=== PATIENT | male | born 1945 | race Caucasian/White ===

== ENCOUNTER 2024-07-25 11:48 | Emergency (ER) | payer SELFPAY ==
[2024-07-25] MEDS ORDERED: NA CHLORIDE 0.9% 1,000 ML ONE (12:10)
--- NOTE | 2024-07-25 12:57 | RAD REPORT ---
EXAMINATION: Extrem Venous W Compress Ethan CLINICAL INDICATION: [facility] MAIN Pain;Swelling Bed Name: 6 N TECHNIQUE: Complete bilateral duplex sonography of the BILATERAL lower extremity veins was performed. The examination included compression for vein patency, color Doppler imaging and flow augmentation in response to distal compression of the distal external iliac, common femoral, femoral, popliteal, t ibial, and great and small saphenous veins. COMPARISON: No prior exam. FINDINGS: Duplex sonography testing of the veins of the BILATERAL lower extremity was performed. Color flow yue ging shows all veins to be compressible with [id number] color filling. Pulsatile and phasic flow is present within all lower extremity deep and superficial veins examined. Mild subcutaneous edema al jaron the lower legs. Elongated fairly well-circumscribed mildly complex cyst in the left popliteal fossa measuring up to 3.9 cm in longest diameter. IMPRESSION: There is no deep vein or superficial vein thrombosis bilaterally. Suspected mildly complex Padgett's cyst in the left popliteal fossa measuring up to 3.9 cm. Mild subcutaneous edema of the lower legs bilaterally.
[2024-07-25 13:15] LABS: Absolute Lymphocytes (CBC) 0.4 K/uL (0.7-4.9); Absolute Monocytes 0.2 K/uL (0.1-1.3); Absolute Neutrophil 4.6 K/uL (1.8-8.0); Basophils % 0.1 % (0-1.3); Eosinophils % 0.1 % (0-4.4); Hematocrit 28.9 % (39.6-49.0); Hemoglobin 9.6 g/dL (13.6-17.9); Lymphocytes % 6.9 % (15.3-44.8); MCH 28.4 pg (27.0-35.0); MCHC 33.3 g/dL (32.0-36.0); MCV 85.2 fL (80-100); MPV 8.8 fL (7.6-11.3); Monocytes % 3.1 % (3.3-12.3); Neutrophils % 89.8 % (41.7-73.7); Platelets 118 thou/uL (152-406); RBC Red Blood Cell Count 3.39 M/uL (4.33-5.43); Red Cell Distribution Width 13.9 % (12.1-15.2)
[2024-07-25 13:16] LABS: PT Prothrombin Time 10.9 SECONDS (9.4-12.5); Protime INR 0.97
[2024-07-25 13:23] LABS: Specific Gravity 1.012 (1.005-1.030); Sqamous Epithelial None Seen /HPF (None Seen); Urine Bacteria None Seen /HPF (<20); Urine Bilirubin NEGATIVE (Negative); Urine Blood 1+ (Negative); Urine Clarity Clear (Clear); Urine Color Colorless (Yellow); Urine Culture Reflex Order NOT NEEDED; Urine Glucose 4+ (Over) (Negative); Urine Ketones NEGATIVE (Negative); Urine Microscopic Reflex YN ORDER UMIC; Urine Nitrite NEGATIVE (Negative); Urine Protein 1+ (Negative); Urine RBC None Seen /HPF (None Seen); Urine Urobilinogen Normal (Normal); Urine WBC <5 /HPF (<5)
[2024-07-25 13:33] LABS: Albumin 2.5 g/dL (3.4-5.0); Albumin/Globulin Ratio 0.6 (1.1-1.8); Anion Gap 9.4 mEq/L (5.0-15.0); Bilirubin Direct 0.3 mg/dL (0-0.2); Bilirubin Indirect, Calculated 0.3 mg/dL (0.2-0.8); Bilirubin Total 0.6 mg/dL (0.2-1.0); Globulin 3.9 g/dL (2.3-3.5); Protein, Total 6.4 g/dL (6.4-8.2); Troponin High Sensitivity 47.6 pg/mL (<58.9)
[2024-07-25 13:36] LABS: Potassium 2.4 mEq/L (3.5-5.1)
[2024-07-25 13:41] LABS: Blood Morphology Comment NOT SEEN (NOT SEEN); Platelet Estimate DECR; White Blood Cell Scan OK (OK)
--- NOTE | 2024-07-25 14:11 | RAD REPORT ---
Procedure: Chest Single View History: Cough Comparison: CT chest July 25, 2000 Mild right lower lobe opacity. Cavitary lesion right lower lobe seen on the CT chest are not well seen on this exam The left lung clear of acute infiltrate. No significant pleural effusion noted. The heart is normal size. IMPRESSION: Mild right lower lobe opacity. Additional right lower lobe cavitary lesion. These probably are infect ious. Neoplasm is another consideration and follow-up imaging recommended.
[2024-07-25] MEDS ORDERED: POTASSIUM 25 MEQ EFFERV TAB ONE ×3 (16:05→17:38)
[2024-07-25] MEDS ORDERED: INSULIN GLARGINE 100 UNIT/ML SQ ONE (16:05)
[2024-07-25] MEDS ORDERED: NS KCL 20MEQ 1,000 ML IV ONE (16:06)
[2024-07-25] MEDS ORDERED: FAMOTIDINE 20 MG/2 ML VIAL IV ONE (16:06)
[2024-07-25] MEDS ORDERED: Levofloxacin500mg IV 500 MG/100 ML BAG IV ONE (16:06)
[2024-07-25] MEDS ORDERED: KCL 20 MEQ/100 mL IVPB 100 ML IV ONE (16:06)
--- NOTE | 2024-07-25 16:08 | EDPHYS ---
Physician Documentation [facility] Name: Joe Sterling Age: 79 yrs Sex: Male : 1945 Arrival Date: 07/25/2024 Time: 11:48 Bed 6 Private MD: VARUN Physician Mayur Kaur HPI: 07/25 15:58 This 79 yrs old Male presents to ER via EMS with complaints of Edema. mariely 15:58 The patient presents with pain, swelling. The complaints affect the right leg and left mariely leg. Context: resulted from an unknown cause. Onset: The symptoms/episode began/occurred 10 day(s) ago. Modifying factors: The symptoms are alleviated by elevating leg, the symptoms are aggravated by movement, weight bearing. Associated signs and symptoms: Pertinent positives: swelling. The patient has shortness of breath with light activity, and the patient has a history of COPD. Duration: The symptoms are continuous, and are steadily getting worse. The patient's shortness of breath is aggravated by exertion, light activity. Historical: - Allergies: 12:02 No Known Allergies; ko1 - Home Meds: 12:02 albuterol sulfate 90 mcg/actuation Inhl HFA Aerosol Inhaler 2 puffs q6hrs as needed for ko1 chronic obstructive pulmonary disease [Active]; allopurinol 100 mg Oral tablet once for gout [Active]; amlodipine 10 mg tablet 1 tab daily for hypertension [Active]; atorvastatin 80 mg oral tablet 1 tab daily for hypercholesterolemia [Active]; budesonide-formoterol 160-4.5 mcg/actuation inhalation HFA Aerosol Inhaler 2 puffs 2 times per day for bronchospasm prevention with COPD [Active]; cholecalciferol (vitamin D3) 50 mcg (2,000 unit) oral capsule .5 cap daily for prevention of vitamin D deficiency [Active]; cyanocobalamin (vitamin B-12) 1,000 mcg oral capsule 1 cap daily for prevention of vitamin B12 deficiency [Active]; empagliflozin 25 mg oral tablet .5 tab daily for kidney disease with reduction in glomerular filtration rate (GFR) [Active]; finasteride 5 mg oral tablet 1 tab daily for benign prostatic hyperplasia with lower urinary tract symptom [Active]; hydrochlorothiazide 25 mg Oral tablet 1 tab daily [Active]; lisinopril 40 mg Oral tablet 1 tab daily for hypertension [Active]; mirtazapine 15 mg Oral tablet 0.5 tabs daily for major depressive disorder [Active]; montelukast 10 mg oral tablet 1 tab every evening for maintenance therapy for asthma [Active]; tamsulosin 0.4 mg oral capsule 1 cap every day at bedtime [Active]; terbinafine HCl 1 % topical cream 1 application 2 times per day [Active]; tiotropium bromide 2.5 mcg/actuation inhalation Mist 2 inhalations daily for bronchospasm prevention with COPD [Active]; - PMHx: 12:02 Chronic obstructive lung disease; Kidney disease; Diabetes mellitus; ko1 Hypercholesterolemia; Hypertensive disorder; - PSHx: 12:02 Unable to Obtain; ko1 - Immunization history:: Adult Immunizations up to date. - Infectious Disease History:: Denies. - Social history:: Smoking status: Patient reports the use of cigarette tobacco products, unknown amount. - Family history:: not pertinent. ROS: 15:58 Constitutional: Negative for fever, chills, and weight loss, Eyes: Negative for injury, mariely pain, redness, and discharge, ENT: Negative for injury, pain, and discharge, Neck: Negative for injury, pain, and swelling, Cardiovascular: Negative for chest pain, palpitations, and edema, Abdomen/GI: Negative for abdominal pain, nausea, vomiting, diarrhea, and constipation, Back: Negative for injury and pain, : Negative for injury, bleeding, discharge, and swelling, Skin: Negative for injury, rash, and discoloration, Neuro: Negative for headache, weakness, numbness, tingling, and seizure, Psych: Negative for depression, anxiety, suicide ideation, homicidal ideation, and hallucinations, Allergy/Immunology: Negative for hives, rash, and allergies, Endocrine: Negative for neck swelling, polydipsia, polyuria, polyphagia, and marked weight changes, Hematologic/Lymphatic: Negative for swollen nodes, abnormal bleeding, and unusual bruising, 15:58 Respiratory: Positive for cough, shortness of breath, at rest. wheezing, expiratory, 15:58 : Positive for 15:58 MS/extremity: Positive for pain, swelling, tenderness, of the right leg and left leg, Exam: 15:58 Constitutional: This is a well developed, well nourished patient who is awake, alert, mariely and in no acute distress. Head/Face: Normocephalic, atraumatic. Eyes: Pupils equal round and reactive to light, extra-ocular motions intact. Lids and lashes normal. Conjunctiva and sclera are non-icteric and not injected. Cornea within normal limits. Periorbital areas with no swelling, redness, or edema. ENT: Nares patent. No nasal discharge, no septal abnormalities noted. Tympanic membranes are normal and external auditory canals are clear. Oropharynx with no redness, swelling, or masses, exudates, or evidence of obstruction, uvula midline. Mucous membranes moist. Neck: Trachea midline, no thyromegaly or masses palpated, and no cervical lymphadenopathy. Supple, full range of motion without nuchal rigidity, or vertebral point tenderness. No Meningismus. Chest/axilla: Normal chest wall appearance and motion. Nontender with no deformity. No lesions are appreciated. Cardiovascular: Regular rate and rhythm with a normal S1 and S2. No gallops, murmurs, or rubs. Normal PMI, no JVD. No pulse deficits. Abdomen/GI: Soft, non-tender, with normal bowel sounds. No distension or tympany. No guarding or rebound. No evidence of tenderness throughout. Back: No spinal tenderness. No costovertebral tenderness. Full range of motion. Male : Normal genitalia with no discharge or lesions. Skin: Warm, dry with normal turgor. Normal color with no rashes, no lesions, and no evidence of cellulitis. Neuro: Awake and alert, GCS 15, oriented to person, place, time, and situation. Cranial nerves II-XII grossly intact. Motor strength 5/5 in all extremities. Sensory grossly intact. Cerebellar exam normal. Normal gait. Psych: Awake, alert, with orientation to person, place and time. Behavior, mood, and affect are within normal limits. 15:58 ECG was reviewed by the Attending Physician. 15:58 Respiratory: the patient does not display signs of respiratory distress, Breath sounds: decreased breath sounds, that are moderate, are scattered, are located in both bases, rhonchi, that are mild, are scattered, stridor, is not appreciated, + upper airway congestion. wheezing: expiratory Respiratory rate: 15 15:58 Musculoskeletal/extremity: Extremities: grossly normal except: ROM: intact in all extremities, full active range of motion, full passive range of motion, Circulation is intact in all extremities. Sensation intact. Compartment Syndrome exam of affected extremity: is normal. Weight bearing: able to fully bear weight, without difficulty, DVT Exam: no pain, no tenderness, negative Homans' sign noted on exam, no appreciated bluish discoloration, no erythema, no increased warmth, swelling, 15:58 Neuro: Orientation: is normal, appropriate for stated age, no acute changes, Mentation: is normal, appropriate for stated age, no acute changes, Memory: is normal, appropriate for stated age, no acute changes, Cranial nerves: grossly normal, is grossly normal based on the patient's age, no acute changes, Cerebellar function: is grossly normal, is grossly normal based on the patient's age, no acute changes, Gait: is steady, appropriate for age, seizure activity, is not displayed by the patient, Vital Signs: 13:04 BP 165 / 66; Pulse 64; Resp 18; Temp 98; Pulse Ox 97% on R/A; ko1 14:12 BP 148 / 61; Pulse 70; Resp 16; Pulse Ox 98% ; ko1 14:58 BP 158 / 75; Pulse 83; Resp 16 S; Pulse Ox 95% on R/A; kc6 16:00 BP 163 / 68; Pulse 84; Resp 15; Pulse Ox 100% ; ko1 16:40 BP 152 / 67; Pulse 100; Resp 19 S; Pulse Ox 99% on R/A; kc6 17:45 BP 140 / 70; Pulse 98; Resp 20 S; Pulse Ox 97% on R/A; kc6 MDM: 11:53 Patient medically screened. mariely 16:03 Differential diagnosis: tendonitis, Bronchitis CHF exacerbation, Chronic Obstructive mariely Pulmonary Disease pneumonia, pulmonary edema, reactive airway disease. Antibiotic administration: Levaquin given. Differential Diagnosis: Obstructed Airway Bronchitis Influenza Upper Respiratory Infection Sinusitis Pharyngitis Otitis Media Asthma Exacerbation Viral Syndrome Pneumonia. Immunization status: Pneumococcal vaccine: within last 5 years. Influenza vaccine: within last 5 years. Data reviewed: vital signs, nurses notes, lab test result(s), EKG, radiologic studies, CT scan, plain films. I considered the following discharge prescriptions or medication management in the emergency department Medications were administered in the Emergency Department. See MAR. Independent interpretation of the following test(s) in the Emergency Department EKG: See my EKG interpretation above. Test considered but Not performed: Ultrasound NO 2 D ECHO. Historians other than the Patient: PT WELL INFORMED. Care significantly affected by the following chronic conditions: Diabetes, Hypertension, Congestive Heart Failure, Chronic Obstructive Pulmonary Disease, Obesity, Chronic Kidney Disease. Counseling: I had a detailed discussion with the patient and/or guardian regarding the historical points, exam findings, and any diagnostic results supporting the discharge/admit diagnosis, lab results, radiology results, the need to transfer to another facility, for higher level of care, [facility] does not immediately have the required specialist. 07/25 11:54 Order name: Basic Metabolic Panel; Complete Time: 15:45 [facility] 07/25 11:54 Order name: CBC with Diff; Complete Time: 15:45 [facility] 07/25 11:54 Order name: LFT's; Complete Time: 15:45 [facility] 07/25 11:54 Order name: Magnesium; Complete Time: 15:45 [facility] 07/25 11:54 Order name: NT PRO-BNP; Complete Time: 15:45 [facility] 07/25 11:54 Order name: PT-INR; Complete Time: 15:45 [facility] 07/25 11:54 Order name: Troponin HS; Complete Time: 15:45 [facility] 07/25 11:54 Order name: Lipase; Complete Time: 15:45 [facility] 07/25 11:54 Order name: Urinalysis w/ reflexes; Complete Time: 15:45 [facility] 07/25 13:18 Order name: CBC Smear Scan; Complete Time: 15:45 [facility] 07/25 15:46 Order name: Phosphorus [facility] 07/25 15:57 Order name: Blood Culture Adult (2) [facility] 07/25 18:28 Order name: Glucose, Ancillary Testing [facility] 07/25 11:54 Order name: XRAY Chest (1 view); Complete Time: 15:45 [facility] 07/25 11:54 Order name: US Extremity Venous W Compression Ethan; Complete Time: 15:45 [facility] 07/25 11:54 Order name: CT Chest Abdomen Pelvis W/O Contrast [facility] 07/25 11:54 Order name: Cardiac monitoring; Complete Time: 13:09 [facility] 07/25 11:54 Order name: EKG - Nurse/Tech; Complete Time: 13:11 [facility] 07/25 11:54 Order name: IV Saline Lock; Complete Time: 13:11 [facility] 07/25 11:54 Order name: Labs collected and sent; Complete Time: 13:11 [facility] 07/25 11:54 Order name: O2 Per Protocol; Complete Time: [facility] 07/25 11:54 Order name: O2 Sat Monitoring; Complete Time: : [facility] EC:58 Rate is 89 beats/min. Rhythm is regular. QRS [place] is Normal. MT interval is normal. QRS mariely interval is normal. QT interval is normal. No Q waves. T waves are Normal. No ST changes noted. Clinical impression: NSR w/ Non-specific ST/T Changes and No evidence of ischemia. Interpreted by me. Reviewed by me. Administered Medications: 15:46 Discontinued: ns 0.9% 1000 ml IV at 75 ml/hr continuous [facility] 13:11 Drug: NS 0.9% IV 1000 ml IV at 75 ml/hr continuous Route: IV; Rate: 75 ml/hr; Site: [facility] left forearm; 15:47 Follow up: Response: No adverse reaction; IV Status: Order to discontinue infusion [facility] 16:15 Drug: Potassium PO Effervescent Tablet 50 mEq PO once; dissolve in 4 ounces of water or kc6 juice Route: PO; 17:42 Follow up: Response: No adverse reaction [facility] 16:15 Drug: Insulin Glargine Sub-Q 30 units Sub-Q once {Co-Signature: ko1 (Juana Busch [facility] RN).} Route: Sub-Q; Site: left upper arm; 18:18 Follow up: Response: No adverse reaction; Blood sugar is unchanged [facility] 16:15 Drug: Famotidine IVP 20 mg IVP once; dilute with 10 mL 0.9% NaCl; give over 2 minutes kc6 Route: IVP; Site: left forearm; 17:42 Follow up: Response: No adverse reaction [facility] 16:25 Drug: Potassium Chloride IV 20 mEq IV at per protocol once; administer over 1-2 hours kc6 Route: IV; Rate: per protocol; Site: right forearm; 18:27 Follow up: Response: No adverse reaction; IV Status: Completed infusion; IV Intake: kc6 100ml 16:25 Drug: NS 0.9% with KCl IV 20 mEq/L 1000 ml IV at 100 ml/hr continuous Route: IV; Rate: kc6 100 ml/hr; Site: right forearm; 18:58 Follow up: Response: No adverse reaction; IV Status: Infusion continued upon transfer kc6 16:39 Drug: levofloxacin IVPB 500 mg 100 ml IVPB once over 60 mins Volume: 100 ml; Route: kc6 IVPB; Infused Over: 60 mins; Site: left forearm; 17:42 Follow up: Response: No adverse reaction; IV Status: Completed infusion; IV Intake: kc6 100ml 16:48 Drug: Levalbuterol Inhalation 2.5 mg Inhalation once Route: Inhalation; [facility] 16:48 Drug: Ipratropium Inhalation Aerosol 0.5 mg Inhalation once Route: Inhalation; [facility] 16:48 Drug: Insulin Regular Human Sub-Q 10 units Sub-Q once {Co-Signature: ko1 (Juana Busch6 RN).} Route: Sub-Q; Site: right upper arm; 18:19 Follow up: Response: No adverse reaction; Blood sugar is unchanged [facility] 17:41 Drug: Potassium PO Effervescent Tablet 50 mEq PO once; dissolve in 4 ounces of water or kc6 juice IN [address] Route: PO; 18:19 Follow up: Response: No adverse reaction [facility] 18:26 Drug: Insulin Regular Human IVP 10 units IVP once {Co-Signature: ko1 (Juana Busch6 RN).} Route: IVP; Site: left forearm; 18:58 Follow up: Response: No adverse reaction; Blood sugar is lowered [facility] Disposition Summary: 07/25/24 16:07 Transfer Ordered Notes: Transfer Location: [facility] mariely Reason: Higher level of care mariely Condition: Fair mariely Problem: new mariely Symptoms: have improved mariely [facility]ing [facility]01[facility] kc6 Diagnosis - Edema, unspecified mariely - COPD/ Chronic obstructive pulmonary disease with acute lower respiratory infection mariely - Pneumonia due to other specified bacteria - RIGHT LOWER , ALSO RIGHT LOWER CAVITARY mariely LESION - Hypokalemia mariely - Acute kidney failure, unspecified mariely - Anemia, unspecified mariely - 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 EDMS EDMS 11:55 11:55 Chest Abdomen Pelvis Wo Con+CT.RAD.BRZ ordered. EDMS EDMS 16:07 16:07 TO THE [facility] 16:13 16:07 TO THE [facility] 19:01 16:13 TO THE [facility] kc6
--- NOTE | 2024-07-25 16:08 | ER ---
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 Patient was started on abx and steroids on the and since then has had problems with swelling, thirst and frequent urination. Coronavirus screen: At this time, the client does not indicate any symptoms associated with coronavirus-19. Ebola Screen: No symptoms or risks identified at this time. Initial Sepsis Screen: Does the patient meet any 2 criteria? Yes Does the patient have a suspected source of infection? No. Patient's initial sepsis screen is negative. Risk Assessment: Do you want to hurt yourself or someone else? Patient reports no desire to harm self or others. Onset of symptoms is unknown. Care prior to arrival: Glucose check: 455. 11:53 Method Of Arrival: EMS: [facility] ko1 11:53 Acuity: SHARRI 3 ko1 Triage Assessment: 12:02 General: Appears in no apparent distress. Behavior is calm, cooperative, appropriate ko1 for age. Pain: Denies pain. Historical: - Allergies: 12:02 No Known Allergies; ko1 - Home Meds: 12:02 albuterol sulfate 90 mcg/actuation Inhl HFA Aerosol Inhaler 2 puffs q6hrs as needed for ko1 chronic obstructive pulmonary disease [Active]; allopurinol 100 mg Oral tablet once for gout [Active]; amlodipine 10 mg tablet 1 tab daily for hypertension [Active]; atorvastatin 80 mg oral tablet 1 tab daily for hypercholesterolemia [Active]; budesonide-formoterol 160-4.5 mcg/actuation inhalation HFA Aerosol Inhaler 2 puffs 2 times per day for bronchospasm prevention with COPD [Active]; cholecalciferol (vitamin D3) 50 mcg (2,000 unit) oral capsule .5 cap daily for prevention of vitamin D deficiency [Active]; cyanocobalamin (vitamin B-12) 1,000 mcg oral capsule 1 cap daily for prevention of vitamin B12 deficiency [Active]; empagliflozin 25 mg oral tablet .5 tab daily for kidney disease with reduction in glomerular filtration rate (GFR) [Active]; finasteride 5 mg oral tablet 1 tab daily for benign prostatic hyperplasia with lower urinary tract symptom [Active]; hydrochlorothiazide 25 mg Oral tablet 1 tab daily [Active]; lisinopril 40 mg Oral tablet 1 tab daily for hypertension [Active]; mirtazapine 15 mg Oral tablet 0.5 tabs daily for major depressive disorder [Active]; montelukast 10 mg oral tablet 1 tab every evening for maintenance therapy for asthma [Active]; tamsulosin 0.4 mg oral capsule 1 cap every day at bedtime [Active]; terbinafine HCl 1 % topical cream 1 application 2 times per day [Active]; tiotropium bromide 2.5 mcg/actuation inhalation Mist 2 inhalations daily for bronchospasm prevention with COPD [Active]; - PMHx: 12:02 Chronic obstructive lung disease; Kidney disease; Diabetes mellitus; ko1 Hypercholesterolemia; Hypertensive disorder; - PSHx: 12:02 Unable to Obtain; ko1 - Immunization history:: Adult Immunizations up to date. - Infectious Disease History:: Denies. - Social history:: Smoking status: Patient reports the use of cigarette tobacco products, unknown amount. - Family history:: not pertinent. Screenin:20 [facility] ED Fall Risk Assessment (Adult) History of falling in the last 3 months, ko1 including since admission No falls in past 3 months (0 pts) Confusion or Disorientation No (0 pts) Intoxicated or Sedated No (0 pts) Impaired Gait No (0 pts) Mobility Assist Device Used No (0 pt) Altered Elimination No (0 pt) Score/Fall Risk Level 0 - 2 = Low Risk Oriented to surroundings, Maintained a safe environment, Educated pt \T\ family on fall prevention, incl call for assistance when getting out of bed, Assessed \T\ reinforced patient's understanding of fall precautions, Provided non-skid footwear, Hourly rounding (assess needs \T\ fall precautionary measures) done. Abuse screen: Denies threats or abuse. Denies injuries from another. Nutritional screening: No deficits noted. Tuberculosis screening: No symptoms or risk factors identified. Assessment: 12:20 Neuro: No deficits noted. Cardiovascular: Patient's skin is warm and dry. edema to ko1 lower ext and hands. Respiratory: No deficits noted. GI: No deficits noted. : No deficits noted. EENT: No deficits noted. Derm: No deficits noted. Musculoskeletal: No deficits noted. 13:20 Reassessment: Patient appears in no apparent distress at this time. No changes from kc6 previously documented assessment. Patient and/or family updated on plan of care and expected duration. Pain level reassessed. Patient is alert, oriented x 3, equal unlabored respirations, skin warm/dry/pink. 14:58 Reassessment: Patient appears in no apparent distress at this time. No changes from kc6 previously documented assessment. Patient and/or family updated on plan of care and expected duration. Pain level reassessed. Patient is alert, oriented x 3, equal unlabored respirations, skin warm/dry/pink. 16:00 Reassessment: Patient appears in no apparent distress at this time. No changes from kc6 previously documented assessment. Patient and/or family updated on plan of care and expected duration. Pain level reassessed. Patient is alert, oriented x 3, equal unlabored respirations, skin warm/dry/pink. 17:45 Reassessment: Patient appears in no apparent distress at this time. No changes from kc6 previously documented assessment. Patient and/or family updated on plan of care and expected duration. Pain level reassessed. Patient is alert, oriented x 3, equal unlabored respirations, skin warm/dry/pink. 18:58 Reassessment: Patient appears in no apparent distress at this time. No changes from kc6 previously documented assessment. Patient and/or family updated on plan of care and expected duration. Pain level reassessed. Patient is alert, oriented x 3, equal unlabored respirations, skin warm/dry/pink. Vital Signs: 13:04 BP 165 / 66; Pulse 64; Resp 18; Temp 98; Pulse Ox 97% on R/A; ko1 14:12 BP 148 / 61; Pulse 70; Resp 16; Pulse Ox 98% ; ko1 14:58 BP 158 / 75; Pulse 83; Resp 16 S; Pulse Ox 95% on R/A; kc6 16:00 BP 163 / 68; Pulse 84; Resp 15; Pulse Ox 100% ; ko1 16:40 BP 152 / 67; Pulse 100; Resp 19 S; Pulse Ox 99% on R/A; kc6 17:45 BP 140 / 70; Pulse 98; Resp 20 S; Pulse Ox 97% on R/A; kc6 ED Course: 11:53 Patient arrived in ED. ko1 11:53 Mayur Kaur MD is Attending Physician. [facility] 11:53 Juana Busch, JOANNE is Primary Nurse. ko1 11:56 Triage completed. ko1 12:02 Arm band placed on right wrist. Patient placed in an exam room, on a stretcher, on ko1 lay out carpenter, on pulse oximetry, Patient notified of wait time. 12:04 CT Chest Abdomen Pelvis W/O Contrast In Process Unspecified. EDMS 12:20 Patient has correct armband on for positive identification. Bed in low position. Call ko1 light in reach. Side rails up X2. Provided Education on: tests. Client placed on continuous cardiac and pulse oximetry monitoring. NIBP monitoring applied. performance improvement analyst on. Door closed. Noise minimized. Lights dimmed. Warm blanket given. Pillow given. 12:35 US Extremity Venous W Compression Ethan In Process Unspecified. EDMS 13:11 Urinalysis w/ reflexes Sent. kc6 13:11 Inserted saline lock: 20 gauge in left forearm, using aseptic technique. Blood kc6 collected. Flushed with 10 mL NS. Patient maintains SpO2 saturation greater than 95% on room air. 13:33 XRAY Chest (1 view) In Process Unspecified. EDMS 14:12 No provider procedures requiring assistance completed. ko1 14:30 Patient requests rest room assistance. ko1 14:30 Assisted to bathroom. ko1 15:32 Assisted to bathroom. ko1 15:33 Patient requests rest room assistance. ko1 16:19 initiated transfer to [facility], faxed chart to [place] er as requested by transfer center.bd 16:20 Inserted saline lock: 22 gauge in right forearm, using aseptic technique. Blood kc6 collected. Flushed with 10 mL NS. 18:07 pt accepted in transfer to [facility] ER by dr Gomes admin approval given by morgan Dale. 18:14 Patient transferred, IV remains in place. ko1 18:50 Awaiting transportation. ko1 Administered Medications: 15:46 Discontinued: ns 0.9% 1000 ml IV at 75 ml/hr continuous mariely 13:11 Drug: NS 0.9% IV 1000 ml IV at 75 ml/hr continuous Route: IV; Rate: 75 ml/hr; Site: [facility] left forearm; 15:47 Follow up: Response: No adverse reaction; IV Status: Order to discontinue infusion [facility] 16:15 Drug: Potassium PO Effervescent Tablet 50 mEq PO once; dissolve in 4 ounces of water or kc6 juice Route: PO; 17:42 Follow up: Response: No adverse reaction [facility] 16:15 Drug: Insulin Glargine Sub-Q 30 units Sub-Q once {Co-Signature: ko1 (Juana Busch6 RN).} Route: Sub-Q; Site: left upper arm; 18:18 Follow up: Response: No adverse reaction; Blood sugar is unchanged [facility] 16:15 Drug: Famotidine IVP 20 mg IVP once; dilute with 10 mL 0.9% NaCl; give over 2 minutes kc6 Route: IVP; Site: left forearm; 17:42 Follow up: Response: No adverse reaction [facility] 16:25 Drug: Potassium Chloride IV 20 mEq IV at per protocol once; administer over 1-2 hours kc6 Route: IV; Rate: per protocol; Site: right forearm; 18:27 Follow up: Response: No adverse reaction; IV Status: Completed infusion; IV Intake: kc6 100ml 16:25 Drug: NS 0.9% with KCl IV 20 mEq/L 1000 ml IV at 100 ml/hr continuous Route: IV; Rate: kc6 100 ml/hr; Site: right forearm; 18:58 Follow up: Response: No adverse reaction; IV Status: Infusion continued upon transfer [facility] 16:39 Drug: levofloxacin IVPB 500 mg 100 ml IVPB once over 60 mins Volume: 100 ml; Route: kc6 IVPB; Infused Over: 60 mins; Site: left forearm; 17:42 Follow up: Response: No adverse reaction; IV Status: Completed infusion; IV Intake: kc6 100ml 16:48 Drug: Levalbuterol Inhalation 2.5 mg Inhalation once Route: Inhalation; [facility] 16:48 Drug: Ipratropium Inhalation Aerosol 0.5 mg Inhalation once Route: Inhalation; [facility] 16:48 Drug: Insulin Regular Human Sub-Q 10 units Sub-Q once {Co-Signature: ko1 (Juana Busch RN).} Route: Sub-Q; Site: right upper arm; 18:19 Follow up: Response: No adverse reaction; Blood sugar is unchanged kc6 17:41 Drug: Potassium PO Effervescent Tablet 50 mEq PO once; dissolve in 4 ounces of water or kc6 juice IN [address] Route: PO; 18:19 Follow up: Response: No adverse reaction kc6 18:26 Drug: Insulin Regular Human IVP 10 units IVP once {Co-Signature: ko1 (Juana Busch6 RN).} Route: IVP; Site: left forearm; 18:58 Follow up: Response: No adverse reaction; Blood sugar is lowered kc6 Medication: 14:12 VIS not applicable for this client. ko1 Intake: 17:42 IV: 100ml; Total: 100ml. kc6 18:27 IV: 100ml; Total: 200ml. kc6 Outcome: 16:07 ER care complete, transfer ordered by MD. schuster 18:20 Condition: stable ko1 18:20 Instructed on the need for transfer, 18:58 Transferred by ground EMS to [facility] Transfer form completed. kc6 19:01 Patient left the ED. kc6 Signatures: Dispatcher [employer] Gloria Mohamud Corey, MD MD cha Campbell, Kaitlyn RN RN kc6 Juana Busch RN RN ko1 Juana Busch RN ko1
--- NOTE | 2024-07-25 16:17 | RAD REPORT ---
EXAM: CT CHEST, ABDOMEN AND PELVIS WITHOUT CONTRAST CLINICAL INDICATION: Male, 79 years old. [facility] MAIN Abdominal distention;Dyspnea Bed Name: 6 TECHNIQUE: CT chest, abdomen and pelvis was performed, without IV contrast, as per department protoco l. Axial, sagittal and coronal reconstructions were obtained. One or more of the following dose reduction techniques were used: Automated exposure control, adjustment of the mA and/or kV according to the patient size, and/or iterative reconstruction. Unless otherwise specified, incidental findings do not require dedicated imaging follow-up. COMPARISON: 08/16/2014 chest radiograph. 08/15/2014 CT chest FINDINGS: The lack of intravenous contrast limits the sensitivity of this exam for evaluation of solid visceral organs, vascular structures, and retroperitoneum. Chest: LOWER NECK/CHEST WALL: Visualized thyroid gland and soft tissues are normal. LUNGS AND AIRWAYS: Airways are clear. Confluent right upper lobe central irregular opacity measuring 2.9 x 1.9 cm, with adjacent groundglass opacification extending caudally to the level of the major fissure. 2 small rounded/ovoid area of fissural lymph nodes, largest measuring 5 mm. Another more ant erior small focus of groundglass opacification in the right upper lobe, axial image 25. In the upper segment right lower lobe, a new cavitary lesion is present with mild wall thickening/nodularity , abutting the pleural surface measuring 3.3 x 2.6 cm. A second cavitary lesion abuts the medial pleural surface near the apex, measuring 1.4 x 1.2 cm on axial image 14. PLEURA: No pleural effusion. No pneumothorax. Hemidiaphragms are normally positioned. MEDIASTINUM AND LYMPH NODES: No mediastinal mass or fluid collection. Prominent mediastinal lymph nod es, largest in the pretracheal space measuring 1.1 cm. Some fullness in the right hilum may suggest prominent lymph nodes as well although evaluation is limited by absence of IV contrast. No suspicious left hilar or axillary adenopathy. THORACIC AORTA: Normal caliber and configuration. PULMONARY ARTERIES: Normal caliber. HEART: Unremarkable. Abdomen/Pelvis LIVER: Innumerable hypoattenuating foci, ill-defined, but appear new since the prior exam. Largest fo cus for reference is in the central right lobe measures 2.6 cm as seen on axial image 63. Mildly nodular outer contour of the liver. GALLBLADDER/BILE DUCTS: No biliary ductal dilatation. PANCREAS: No mass, ductal dilation, or korey-pancreatic fluid. SPLEEN: Normal size. No focal lesion. ADRENALS: Normal; no mass. KIDNEYS AND URETERS: Normal size and contour. No hydronephrosis. Few small nonobstructing right renal calculi, largest measuring 4 mm. GASTROINTESTINAL TRACT: Stomach is non-dilated. Small bowel has normal course and caliber. No colonic wall thickening or pericolonic inflammatory changes. PERITONEUM: No free air. Trace free fluid along the paracolic gutters and pelvis LYMPH NODES: No lymphadenopathy. ABDOMINAL AORTA AND OTHER VESSELS: Normal caliber aorta and IVC. URINARY BLADDER: Normal contour. REPRODUCTIVE ORGANS: No pathologic process. MUSCULOSKELETAL: Geographic subchondral sclerotic lesions along the right more than left femoral head , suggesting sequelae of avascular necrosis. No other focal suspicious osseous lesions. ADDITIONAL FINDINGS: None IMPRESSION: Central right upper lobe irregular masslike opacity measuring up to 2.9 cm, concerning for malignancy . Adjacent and more anterior right upper lobe areas of groundglass opacification, could relate to local spread. Superimposed/concomitant infection may also be considered. Innumerable hypoattenuating foci within the liver, concerning for metastatic disease. New cavitary lesions in the right lower lobe upper segment and in the left upper lobe medially near t he apex, largest measuring 3.3 cm, may represent cavitary metastases or second primaries of lung origin. Other incidental findings as above, including mild free situs, and nonobstructing right renal calculi not exceeding 4 mm in size.
[2024-07-25] MEDS ORDERED: IPRATROPIUM BROM 0.5MG/2.5ML ONE (16:42)
[2024-07-25] MEDS ORDERED: LEVALBUTEROL 1.25 MG/3 ML NEB ONE (16:42)
[2024-07-25] MEDS ORDERED: INSULIN REGULAR (HUMAN) 100 UNIT/ML ONE ×2 (16:43→18:22)
[2024-07-25 19:33] VITALS: TEMP 98
[2024-07-25 19:40] VITALS: BP 140/70; O2SAT 97
--- NOTE | 2024-07-26 12:19 | EKG ---
Test Date: 2024-07-25 Test Time: 13:16:17 Whirley Operator: TAL MEASUREMENT RESULTS: Intervals: Rate: 89 NC: 128 QRSD: 136 QT: 424 QTc: 515 Jackson: P: 68 NC: 128 QRS: -8 T: 55 INTERPRETIVE STATEMENTS: Sinus rhythm with premature atrial complexes Right bundle branch block Abnormal ECG Compared to ECG 08/16/2014 10:05:34 Atrial premature complex(es) now present ST (T wave) deviation no longer present Electronically Signed On 07-26-24 12:16:59 CDT by Deniz Ojeda
== END 2024-07-25 19:01 ==
LOC: ER 11:48
DX: J44.0 Chronic obstructive pulmonary disease with (acute) lower respiratory infection (principal); J15.8 Pneumonia due to other specified bacteria; R60.9 Edema, unspecified; E87.6 Hypokalemia; N17.9 Acute kidney failure, unspecified; D64.9 Anemia, unspecified; J92.9 Pleural plaque without asbestos; E11.65 Type 2 diabetes mellitus with hyperglycemia; I10 Essential (primary) hypertension; F17.210 Nicotine dependence, cigarettes, uncomplicated
CPT/HCPCS: 36415; 71045; 71250; 74176; 80048; 80076; 81001; 82947; 83690; 83735; 83880; 84100; 84484; 85025; 85610; 87040; 93005; 93970; J3480; J7030; J7614; J7644